=== PATIENT | female | born 1930 | race Two or more races ===

== ENCOUNTER 2019-06-19 21:37 | Emergency (ER) | payer OTHER ==
[~2019-06-19] VITALS: Ht 162.6 cm; Wt 72.6 kg
[2019-06-19] MEDS ORDERED: SODIUM CHLORIDE 0.9% 1,000 ML IV ONE (22:00)
[2019-06-19 23:26] LABS: Basophils # (auto) 0 uL; Basophils % (auto) 0.5 % (0.0-2.0); Eosinophils # (auto) 0 uL; Eosinophils % (auto) 0.4 % (0.0-7.0); Hematocrit 44.1 % (36.0-46.0); Hemoglobin 14.9 g/dL (12.2-16.2); Lymphocytes # (auto) 1.2 uL; Lymphocytes % (auto) 12.4 % (10.0-50.0); Mean Corpuscular Hemoglobin 31.8 pg (28.0-32.0); Mean Corpuscular Hgb Conc. 33.7 g/dL (32.0-36.0); Mean Corpuscular Volume 94.5 fL (80.0-100.0); Monocytes # (auto) 0.7 uL; Neutrophils # (auto) 7.8 uL; Neutrophils % (auto) 79.7 % (37.0-80.0); Platelet Count (auto) 172 10^3/uL (140-450); Red Blood Cells 4.67 10^6/uL (4.0-5.20); Red Cell Distribution Width 13.5 % (11.8-14.3); White Blood Cell 9.8 10^3/uL (4.4-10.8)
[2019-06-19 23:42] LABS: Albumin 3.6 g/dL (3.4-5.0); Calcium 8.7 mg/dL (8.5-10.1); Potassium 4.2 mmol/L (3.5-5.1)
[2019-06-19 23:45] LABS: BUN/Creatinine Ratio 20.6
[2019-06-19 23:47] LABS: Bilirubin, Total 0.4 mg/dL (0.2-1.0); Total Protein 7.7 g/dL (6.4-8.2)
[2019-06-19 23:51] LABS: Salicylate 2.7 mg/dL (2.8-20.0)
[2019-06-19 23:56] LABS: Acetaminophen < 2.0 ug/mL (10-30)
[2019-06-20 02:15] VITALS: BP 169/79
== END 2019-06-20 02:20 | disposition home or self-care (01) ==
LOC: EDBD 21:37 → ER 21:40 → EDSEX 21:40 → ER 06-20 02:16
DX: T40.4X1A Poisoning by other synthetic narcotics, accidental (unintentional), initial encounter (principal); I15.8 Other secondary hypertension; G31.83 Neurocognitive disorder with Lewy bodies; F02.80 Dementia in other diseases classified elsewhere, unspecified severity, without behavioral disturbance, psychotic disturbance, mood disturbance, and anxiety; I10 Essential (primary) hypertension; Z90.49 Acquired absence of other specified parts of digestive tract; Z90.710 Acquired absence of both cervix and uterus; Y92.89 Other specified places as the place of occurrence of the external cause
CPT/HCPCS: 36415; 80053; 80329; 83880; 85025; 99283; J7030